=== PATIENT | male | born 1995 | race African-American/Black ===

== ENCOUNTER 2019-12-25 12:24 | Emergency (ER) | payer OTHER ==
[~2019-12-25] VITALS: Ht 170.2 cm; Wt 63.6 kg
[2019-12-25] MEDS ORDERED: IV NORMAL SALINE 1,000ML 1,000 ML IV SCH (12:33)
[2019-12-25 12:56] VITALS: BP 130/75
--- NOTE | 2019-12-25 13:04 | PHYS DOC ---
Past History Past Medical History: No Pertinent History, Other Past Surgical History: No Surgical History Smoking: Non-smoker Alcohol Use: Occasionally Drug Use: None, Marijuana Adult General Chief Complaint Chief Complaint: NAUSEA/VOMITING/[facility] HPI Patient is a 24-year-old male who presents for nausea and vomit Onset was this morning when he woke up Nothing known makes better, attempted p.o. intake makes worse Patient denies any pain, just admits he has an onset stomach and feels generally fatigued Timing of symptoms is been constant since onset Associated symptoms include subjective chills, fatigue, malaise, and epigastric discomfort Patient reports drinking liquor yesterday evening in addition to smoking marijuana, reports he "did not drink as much as I usually do", and has not changed the quantity or type of marijuana he typically abuses. Patient otherwise healthy, not on any daily medications, no serious comorbid conditions. Denies any other constitutional symptoms such as fever, denies any known COVID- 19 contacts recent travel, concerning exposures or ingestions Review of Systems Review of Systems Fourteen body systems of review of systems have been reviewed. See HPI for pertinent positives and negative responses, other beckett all other systems are negative, non-pertinent or non-contributory Current Medications Current Medications Current Medications Medications (Trade) Dose Ordered Sig/Lidia Start Time Stop Time Status Last Admin Dose Admin Sodium Chloride 1,000 ml @ 1,000 mls/hr Q1H 12/25/19 12:33 12/25/19 13:32 12/25/19 12:50 1,000 MLS/HR Allergies Allergies Allergies Coded Allergies Type Severity Reaction Last Updated Verified No Known Drug Allergies 05/28/15 No Physical Exam Physical Exam Constitutional: Well developed, well nourished, no acute distress, non-toxic appearance. HENT: Normocephalic, atraumatic, bilateral external ears normal, oropharynx moist, no oral exudates, nose normal. Eyes: PERRLA, EOMI, conjunctiva normal, no discharge. Neck: Normal range of motion, no tenderness, supple, no stridor. Cardiovascular: Heart rate regular, sinus rhythm, no murmurs rubs or gallops Lungs & Thorax: Bilateral breath sounds clear to auscultation Abdomen: Bowel sounds normal, soft, no tenderness, no masses, no pulsatile masses. Nonsurgical abdomen, no peritoneal signs Skin: Warm, dry, no erythema, no rash. Back: No tenderness, no CVA tenderness. Extremities: No tenderness, no cyanosis, no clubbing, ROM intact, no edema. Neurologic: Alert and oriented X 3, grossly normal motor & sensory function, no focal deficits noted. Psychologic: Affect normal, judgement normal, mood normal. Current Patient Data Vital Signs Vital Signs Date Time Temp Pulse Resp B/P (MAP) Pulse Ox O2 Delivery O2 Flow Rate FiO2 12/25/19 12:56 97.8 55 26 130/75 (93) 100 Lab Results Laboratory Tests Test 12/25/19 12:50 Sodium Level 141 mmol/L Potassium Level 3.8 mmol/L Chloride Level 103 mmol/L Carbon Dioxide Level 28 mmol/L Anion Gap 10 Blood Urea Nitrogen 8 mg/dL Creatinine 1.3 mg/dL Estimated GFR (Cockcroft-Gault) 82.8 BUN/Creatinine Ratio 6 Glucose Level 147 mg/dL Calcium Level 9.2 mg/dL Total Bilirubin 0.4 mg/dL Aspartate Amino Transf (AST/SGOT) 30 U/L Alanine Aminotransferase (ALT/SGPT) 26 U/L Alkaline Phosphatase 82 U/L Creatine Kinase 262 U/L Total Protein 8.0 g/dL Albumin 4.5 g/dL Albumin/Globulin Ratio 1.3 Lipase 94 U/L Current Medications Medications (Trade) Dose Ordered Sig/Lidia Route PRN Reason Start Time Stop Time Status Last Admin Dose Admin Sodium Chloride 1,000 ml @ 1,000 mls/hr Q1H IV 12/25/19 12:33 12/25/19 13:32 DC 12/25/19 12:50 Ondansetron HCl (Zofran) 4 mg 1X ONCE IVP 12/25/19 13:45 12/25/19 13:50 DC 12/25/19 13:49 EKG EKG [] Radiology/Procedures Radiology/Procedures [] Course & Med Decision Making Course & Med Decision Making Nontoxic well-appearing individual who is self ambulatory on arrival was seen by myself on immediate ED arrival Hemodynamically stable, nontoxic-appearing Comprehensive history and physical exam obtained with subsequent labs, all grossly non-concerning for emergent pathology Patient received IV fluids and IV anti-medics while in ED with moderate resolution of symptomology Discussed ED course with patient. Discussed this is likely consequence of patient's alcohol and marijuana abuse from night before. Discussed this may be an acute presentation of more concerning pathology and patient understood this. Joint decision to defer any further work-up or invasive intervention at this time Joint decision for discharge home with continued supportive care and new prescription for p.o. Zofran for as needed use nausea Strict return precautions discussed with good understanding by patient, all questions and concerns addressed prior to ER departure Sanchez Disclaimer Sanchez Disclaimer This electronic medical record was generated, in whole or in part, using a voice recognition dictation system. Departure Departure: Impression: Primary Impression: Abdominal pain Disposition: HOME/RESIDENCE PRIOR TO ADM Condition: IMPROVED Referrals: ANNABELLE BLAKE (PCP) Patient Instructions: Nausea and Vomiting Additional Instructions: You have been evaluated in the Emergency Department today for abdominal pain. Your evaluation was not suggestive of any emergent condition requiring medical intervention at this time. However, some abdominal problems make take more time to appear. Therefore, it is important for you to watch for any new symptoms or worsening of your current condition. Please follow up with your primary care physician as needed. If you do not have a primary doctor, you can call your insurance company to find one. If you do not have insurance, you can go to the finance/registration department for more assistance. Return to the Emergency Department if you experience worsening pain, persistent fevers greater than 100.4, recurrent vomiting, blood in vomit, blood in stool, dark tarry stool, chest pain, difficulty breathing, or any other concerning symptoms. Scripts Ondansetron Hcl (ZOFRAN) 4 Mg Tablet 1 TAB PO Q6HRS for NAUSEA, #20 TAB Prov: JAY MARES DO 12/25/19 Justification of Admission: Justification of Admission: Justification of Admission Dx: N/A JAY MARES DO Dec 25, 2019 13:04
[2019-12-25 13:19] LABS: CALCIUM 9.2 mg/dL (8.5-10.1); CREATININE 1.3 mg/dL (0.7-1.3); GFR 82.8; POTASSIUM 3.8 mmol/L (3.5-5.1)
[2019-12-25 13:25] LABS: ALBUMIN 4.5 g/dL (3.4-5.0); ALBUMIN/GLOBULIN RATIO 1.3 (1.0-1.7); TOTAL BILIRUBIN 0.4 mg/dL (0.2-1.0)
[2019-12-25] MEDS ORDERED: ONDANSETRON PF 4 MG/2 ML VIAL. IVP ONE (13:45)
[2019-12-25] MEDS ORDERED: ONDA4TAB7 PO (14:13)
== END 2019-12-25 14:23 | disposition home or self-care (01) ==
LOC: ER 12:24
DX: R10.9 Unspecified abdominal pain (principal); R11.2 Nausea with vomiting, unspecified; R53.83 Other fatigue; F12.10 Cannabis abuse, uncomplicated
CPT/HCPCS: 36415; 80053; 82550; 83690; 96361; 96374; 99283; J2405; J7030